=== PATIENT | male | born 1940 | race Caucasian/White ===

== ENCOUNTER 2017-04-05 12:58 | Emergency (ER) | payer OTHER ==
[2017-04-05 13:20] VITALS: BP 153/70; TEMP 95; BMI 25.7
--- NOTE | 2017-04-05 14:21 | DI ---
Exam: Single x-ray of the chest. Comparison: 08/05/2012. Reason for exam: Cough. FINDINGS: No pneumothorax. Developing opacity is seen in the left lung base. The cardiac silhouett e is not enlarged. The imaged osseous structures appear grossly unremarkable without acute fracture. Impression: Left lower lobe airspace opacity may be accentuated by summation shadowing. Imaging find ings can be seen with pneumonia, atelectasis, and neoplasia. Recommend follow-up two-view of the patricia st or CT examination for further characterization.
[2017-04-05] MEDS ORDERED: DEXTROSE 50%-WATER ABBOJECT ONE (14:26)
--- NOTE | 2017-04-05 14:38 | CT ---
EXAM: CT head without contrast. HISTORY: Initial presentation for head trauma due to a fall. COMPARISON: None available. TECHNIQUE: Multiple axial images of the brain were obtained from the skull base through the vertex w ithout intravenous contrast. Multiplanar reformats were provided. FINDINGS: There is no intracranial hemorrhage or extraaxial collection. The ramirez-white differentiat ion is maintained without evidence for acute large vascular territory infarction. There are areas of periventricular and subcortical white matter low attenuation. Focal area of encephalomalacia sugges jovanna in the anterior inferior right frontal lobe on axial image 9 and coronal image 11. The cortical sulci and cerebral ventricles are symmetrically enlarged. The basal cisterns are well visualized. T here is no hydrocephalus, mass effect, or midline shift. Moderate ethmoid sinus mucosal thickening n oted with more mild changes throughout remainder of the paranasal sinuses. The mastoid air cells are clear. The calvarium is intact. Old appearing anterior nasal bone and perpendicular plate fracture s noted. IMPRESSION: 1. No acute intracranial abnormality. 2. Chronic small vessel ischemic changes and atrophy.
--- NOTE | 2017-04-05 15:10 | ED.PDOC ---
General ED Provider: Dr. IVANA ASHRAF Chief Complaint: Fall Stated Complaint: FALL Time Seen by Physician: 13:00 (FOUND THE FLOOR BY GRANDSON AROUND 1 PM. PT STATED HE PASSED OUT ) Mode of Arrival: Ambulance Information Source: Patient, Family, EMT (EMT ARRIVED PT'S BLOOD SUGAR WAS 50 AT HIS RESIDENCE PT LIVES ALONE DENIED HEAD AND NECK PAIN) Exam Limitations: No limitations, Other ( PRESENT WAS BETTY DURING THE ENTIRE BONE SURVEY WHICH WAS NEGATIVE ) Primary Care Provider: AZEB COOK Referred to ED by: Other (FULL BONE SURVEY WAS NEGATIVE FOR ANY FOCAL PAIN ) Nursing and Triage Documentation Reviewed and Agree: Yes Reviewed sepsis parameters & appropriate labs ordered?: Yes System Inflammatory Response Syndrome: Not Applicable Sepsis Protocol: For patient's 13 years and over: Temp is 96.8 and below OR 101 and greater Pulse >90 BPM Resp >20/minute Acutely Altered Mental Status Are patient's symptoms suggestive of a new infection, such as: -Pneumonia -Skin, Soft Tissue -Endocarditis -UTI -Bone, Joint Infection -Implantable Device -Acute Abdominal Infection -Wound Infection -Meningitis -Blood Stream Catheter Infection -Unknown Trauma/Injury Complaint Exam - Trauma Complaint/Exam Location of Pain or Injury: Reports: Head, RLE (ABRASION SEE PHOTOS). Denies: Scalp, Face, Neck, RUE, LUE, Chest, Abdomen, Back Mechanism of Injury: Reports: Fall ( FROM STANDING POSTION FOUND ON THE FLOOR ) Onset/Duration: 12 HOURS AGO ABOUT 1 PM Symptoms Are: Resolved Initial Severity: Mild Current Severity: Mild Aggravating: Reports: None Alleviating: Reports: None Associated Signs and Symptoms: Denies: LOC, Confusion, Memory loss, Lethargy, Vomiting, Bleeding, Bruising (ABRASION FORHEAD SEE PHOTOS), Swelling, Extremity disuse, Painful respiration, Hoarseness, Dysphagia, Hemoptysis, Significant blood loss Related History: Reports: Similar episode Nexus Low Risk Criteria: No post-midline CS tender, No evidence of intoxicat., No Altered LOC, No focal neuro deficit, No distracting injuries Glascow Coma Scale (see protocol): 15 NO FOCAL PAIN Trauma Findings: Absent: Racoon eyes, Hemotympanum, Nasal deformity, Dental tenderness, Neck tenderness, Neck spasm, Crepitus, Airway obstructed, Trachea displaced, Labored respirations, Weak pulses, Absent pulses, Abdominal distention, Pelvic tenderness, Pelvic instability Skin Findings: Present: Abrasion Review of Systems - Review Of Systems Constitutional: Reports: No symptoms Eyes: Reports: No symptoms Ears, Nose, Mouth, Throat: Reports: No symptoms Respiratory: Reports: No symptoms Cardiac: Reports: No symptoms GI: Reports: No symptoms : Reports: No symptoms Musculoskeletal: Reports: No symptoms Skin: Reports: No symptoms Neurological: Reports: No symptoms Endocrine: Reports: No symptoms Hematologic/Lymphatic: Reports: No symptoms All Other Systems: Reviewed and Negative Past Medical History - Past Medical History Previously Healthy: No Endocrine: Reports: DM 2, Dyslipidemia Cardiovascular: Reports: Hypertension Respiratory: Reports: COPD, Pneumonia Hematological: Reports: None Gastrointestinal: Reports: None Genitourinary: Reports: CKD Neuro/Psych: Reports: None Musculoskeletal: Reports: None Cancer: Reports: None - Surgical History General Surgical History: Reports: None - Family History Family History: Reports: None - Social History Smoking Status: Current every day smoker 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) Alcohol Screening: Occasionally - Immunizations Tetanus Shot up to Date: No Physical Exam - Physical Exam Appearance: Ill-appearing Ill-appearing: Mild Pain Distress: Mild Eyes: CHAITANYA, EOMI, Conjunctiva clear ENT: Ears normal, Nose normal, Oropharynx normal Respiratory: Airway patent, Breath sounds clear, Breath sounds equal, Respirations nonlabored Cardiovascular: RRR, Pulses normal, No rub, No murmur GI/: Soft, Nontender, No masses, Bowel sounds normal, No Organomegaly Musculoskeletal: Normal strength, ROM intact, No edema, No calf tenderness Skin: Warm, Dry (ABRASION ON THE FORHEAD AND RIGHT FOREARM FLEXOR SIDE ), Normal color Neurological: Sensation intact, Motor intact, Reflexes intact, Cranial nerves intact, Alert, Oriented Psychiatric: Affect appropriate, Mood appropriate Interpretation - Radiology Interpretation Radiology Interpretation By: Radiologist Radiology Results: No acute changes Exam Interpreted: CT Scan - Bioinformaticist Rate: Kvng Rhythm: Sinus - EKG Interpretation Rate: Kvng Rhythm: Sinus Physician Notification - Case Discussed Physician Notified: pmd Time of Notification: 15:49 (saw pt in the ED ADJUSTED MEDS ASK PT TO FOLLOW UP WITH HIM) Critical Care Note - Critical Care Note Total Time (mins): 0 Course - Course Hematology/Chemistry: 04/05/17 13:58 04/05/17 13:58 Orders, Labs, Meds: Lab Review 04/05/17 04/05/17 04/05/17 13:50 13:58 13:58 WBC 13.00 H RBC 4.05 L Hgb 12.0 L Hct 34.4 L MCV 84.9 MCH 29.6 MCHC 34.9 RDW Coeff of Minerva 14.2 Plt Count 201 Immature Gran % (Auto) 0.7 Neut % (Auto) 79.2 Lymph % (Auto) 11.7 Thayer % (Auto) 5.4 Eos % (Auto) 2.6 Baso % (Auto) 0.4 Immature Gran # (Auto) 0.1 Neut # 10.3 H Lymph # 1.5 Thayer # 0.7 Eos # 0.3 Baso # 0.1 Sodium 138 Potassium 4.0 Chloride 104 Carbon Dioxide 27 Anion Gap 11.0 BUN 17 Creatinine 1.28 H Estimated GFR (MDRD) 55.00 BUN/Creatinine Ratio 13.28 Glucose 48 L* Calcium 9.3 Total Bilirubin < 0.3 AST 16 ALT 14 Alkaline Phosphatase 87 Total Creatine Kinase Troponin I Total Protein 7.1 Albumin 3.5 Globulin 3.6 Albumin/Globulin Ratio 0.97 Plasma/Serum Alcohol Influenza A (Rapid) Negative by naat Influenza B (Rapid) Negative by naat 04/05/17 04/05/17 13:58 13:58 WBC RBC Hgb Hct MCV MCH MCHC RDW Coeff of Minerva Plt Count Immature Gran % (Auto) Neut % (Auto) Lymph % (Auto) Thayer % (Auto) Eos % (Auto) Baso % (Auto) Immature Gran # (Auto) Neut # Lymph # Thayer # Eos # Baso # Sodium Potassium Chloride Carbon Dioxide Anion Gap BUN Creatinine Estimated GFR (MDRD) BUN/Creatinine Ratio Glucose Calcium Total Bilirubin AST ALT Alkaline Phosphatase Total Creatine Kinase 110 Troponin I 0.0120 Total Protein Albumin Globulin Albumin/Globulin Ratio Plasma/Serum Alcohol < 10.0 Influenza A (Rapid) Influenza B (Rapid) Orders Category Date Time Status EKG-(ED ONLY) Stat CARDIO 04/05/17 13:45 Completed BLOOD ALCOHOL Stat LAB 04/05/17 13:58 Completed CBC W/ AUTO DIFF Stat LAB 04/05/17 13:58 Completed COMPREHENSIVE METABOLIC PANEL Stat LAB 04/05/17 13:58 Completed CREATINE KINASE Stat LAB 04/05/17 13:58 Completed MOLECULAR FLU A/B Stat LAB 04/05/17 13:50 Completed TROPONIN I Stat LAB 04/05/17 13:58 Completed Dextrose 50 % in Water [Dextrose 50%-Water Abboject] MEDS 04/05/17 14:26 Discontinued 50 ml .ROUTE .STK-MED ONE CHEST, 1V AP ONLY Stat RADS 04/05/17 13:[address] HEAD W/O CONTRAST Stat RADS 04/05/17 13:46 Completed Vital Signs: Temp Pulse Resp BP Pulse Ox 04/05/17 13:03 95.0 F L 50 L 16 153/70 H 100 Departure - Departure Time of Disposition: 16:00 Disposition: HOME SELF-CARE Discharge Problem: Hypoglycemia Instructions: Hypoglycemia in a Person with Diabetes (ED) Condition: Good Pt referred to PMD for follow-up: Yes Additional Instructions: Please call your Family Physician as soon as possible to schedule a follow-up appointment. No Humalog insulin tonight. Take blood sugar breakfast, lunch and supper tomorrow and call results to office on Monday Reduce Lantus from 55 units to 40 units tomorrow. Allergies/Adverse Reactions: Allergies No Known Allergies Allergy (Unverified 04/05/17 13:09) Home Medications: Ambulatory Orders Carvedilol [Coreg] 3.125 mg PO BID 04/05/17 Diazepam [Valium] 5 mg PO BID 04/05/17 Insulin Glargine,Hum.rec.anlog [Lantus] 55 unit SUBCUT DAILY 04/05/17 Insulin Lispro [Humalog] 6 unit SUBCUT TIDWM 04/05/17 Lisinopril [Zestril] 20 mg PO DAILY 04/05/17 Metformin HCl [Glucophage] 1,000 mg PO BEDTIME 04/05/17
[2017-04-05] MEDS ORDERED: DEXTROSE 50%-WATER ABBOJECT IVP STA (16:01)
== END 2017-04-05 15:55 | disposition home or self-care (01) ==
LOC: ED 12:58
DX: E11.649 Type 2 diabetes mellitus with hypoglycemia without coma (principal); R55 Syncope and collapse; R40.4 Transient alteration of awareness; S00.81XA Abrasion of other part of head, initial encounter; S50.811A Abrasion of right forearm, initial encounter; R00.1 Bradycardia, unspecified; W19.XXXA Unspecified fall, initial encounter; F10.21 Alcohol dependence, in remission; I10 Essential (primary) hypertension; E78.5 Hyperlipidemia, unspecified; J44.9 Chronic obstructive pulmonary disease, unspecified; N18.9 Chronic kidney disease, unspecified; F17.210 Nicotine dependence, cigarettes, uncomplicated; Z79.4 Long term (current) use of insulin; Z79.899 Other long term (current) drug therapy
CPT/HCPCS: 36415; 80053; 80307; 82550; 84484; 85025; 87502; 93005; 93010; 96374; 99283

== ENCOUNTER 2017-06-11 20:48 | Inpatient (IN) | payer OTHER ==
[2017-06-11] MEDS ORDERED: DUONEB NEB STA (21:02)
[2017-06-11] MEDS ORDERED: XOPENEX 1.25 MG NEB STA (21:03)
--- NOTE | 2017-06-11 21:09 | ED.PDOC ---
General ED Provider: Dr. HONORIO GUADARRAMA-ER Chief Complaint: Shortness of Air Stated Complaint: i saw dr allison recently and put on antbx--now i am still coughing and sob Time Seen by Physician: 20:50 Mode of Arrival: Walk-In Information Source: Patient Exam Limitations: No limitations Primary Care Provider: AZEB ALLISON Nursing and Triage Documentation Reviewed and Agree: Yes Reviewed sepsis parameters & appropriate labs ordered?: Yes System Inflammatory Response Syndrome: Not Applicable Sepsis Protocol: For patient's 13 years and over: Temp is 96.8 and below OR 101 and greater Pulse >90 BPM Resp >20/minute Acutely Altered Mental Status Are patient's symptoms suggestive of a new infection, such as: -Pneumonia -Skin, Soft Tissue -Endocarditis -UTI -Bone, Joint Infection -Implantable Device -Acute Abdominal Infection -Wound Infection -Meningitis -Blood Stream Catheter Infection -Unknown Respiratory Complaint Exam - Respiratory Complaint/Exam Onset/Duration: 6 days Symptoms Are: Still present Timing: Intermittent Initial Severity: Mild Current Severity: Mild Location: Chest Character: Reports: Productive cough Aggravating: Reports: URI, Passive smoke exposure Alleviating: Reports: Bronchodilators Associated Signs and Symptoms: Reports: Dyspnea, Fever, Chills, Wheezing, URI. Denies: Rapid breathing, Chest pain, Pleuritic chest pain, Hemoptysis, Dizziness , Calf pain, Calf swelling, Edema, Nasal congestion, Hoarseness, Sinus discomfort, Vomiting, Sore throat, Weight loss, Decreased oral intake, Increased thirst, Increased appetite, Increased urination History of Healthcare-Acquired Pneumonia: No Pseudomonas Risk Factors: Reports: Chronic Lung Disease Home Oxygen Use: No Recent Stress Test: No Recent Echo/LV Function: No Current Antibiotic Use: Yes Current Asthma Medication Use: No Respiratory Distress: Mild Inadequate Respiratory Effort: No Dysphagia Present: No Stridor Present: No JVD Present: No Accessory Muscle Use: No Retractions: Not Present Diminished Breath Sounds: No Sinus Tenderness: None Grunting Respirations: No Kussmaul Respirations: No Differential Diagnoses: COPD Exacerbation, Pneumonia, Bronchitis Non-Traumatic Chest Pain Syncope: EKG Performed Review of Systems - Review Of Systems Constitutional: Reports: Weakness Eyes: Reports: No symptoms Ears, Nose, Mouth, Throat: Reports: No symptoms Respiratory: Reports: Cough, Short of air, Wheezing Cardiac: Reports: No symptoms GI: Reports: No symptoms : Reports: No symptoms Musculoskeletal: Reports: No symptoms Skin: Reports: No symptoms Neurological: Reports: No symptoms Endocrine: Reports: No symptoms Hematologic/Lymphatic: Reports: No symptoms All Other Systems: Reviewed and Negative Past Medical History - Past Medical History Previously Healthy: No Endocrine: Reports: DM 2, Dyslipidemia Cardiovascular: Reports: Hypertension Respiratory: Reports: COPD, Pneumonia Hematological: Reports: None Gastrointestinal: Reports: None Genitourinary: Reports: CKD Neuro/Psych: Reports: None Musculoskeletal: Reports: None Cancer: Reports: None - Surgical History General Surgical History: Reports: None - Family History Family History: Reports: None - Social History Smoking Status: Current every day smoker, Light tobacco smoker 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) Alcohol Screening: None Lives: With family - Immunizations Tetanus Shot up to Date: No Physical Exam - Physical Exam Appearance: Well-appearing, No pain distress, Well-nourished Eyes: CHAITANYA, EOMI, Conjunctiva clear ENT: Ears normal, Nose normal, Oropharynx normal Neck: Supple Respiratory: Airway patent, Breath sounds equal, Rhonchi, Wheezes Cardiovascular: RRR GI/: Soft, Nontender, No masses, Bowel sounds normal, No Organomegaly Musculoskeletal: Normal strength, ROM intact, No edema, No calf tenderness Skin: Warm Neurological: Sensation intact Psychiatric: Affect appropriate, Mood appropriate, Anxious Interpretation - Radiology Interpretation Radiology Interpretation By: Radiologist Radiology Results: Positive Exam Interpreted: CT Scan - EKG Interpretation Time of EKG #1: 21:57 Rate: Normal Rhythm: Sinus Ectopy: None Dolores: NL ST Segment: Normal Interpretation: nsr Physician Notification - Case Discussed Physician Notified: dr allison Time of Notification: 21:58 Critical Care Note - Critical Care Note Total Time (mins): 0 Course - Course Hematology/Chemistry: 06/11/17 21:10 06/11/17 21:10 Orders, Labs, Meds: Lab Review 06/11/17 06/11/17 06/11/17 21:00 21:01 21:10 WBC 7.38 RBC 3.75 L Hgb 11.3 L Hct 31.8 L MCV 84.8 MCH 30.1 MCHC 35.5 H RDW Coeff of Minerva 13.7 Plt Count 161 Neutrophils % (Manual) 72.0 Lymphocytes % (Manual) 16.0 Monocytes % (Manual) 10.0 Basophils % (Manual) 1.0 Reactive Lymphocytes 1.0 Anisocytosis Not present Puncture Site Lb O2 Saturation 91.0 L ABG pH 7.39 ABG pCO2 34.5 L ABG pO2 61.0 L ABG HCO3 20.9 L ABG Total CO2 22 ABG Base Excess -4 L Ramesh Test + FiO2 % 21.0 Sodium Potassium Chloride Carbon Dioxide Anion Gap BUN Creatinine Estimated GFR (MDRD) BUN/Creatinine Ratio Glucose Calcium Total Bilirubin AST ALT Alkaline Phosphatase Total Protein Albumin Globulin Albumin/Globulin Ratio Influ A Molecular Assay Negative by naat Influ B Molecular Assay Positive by naat H 06/11/17 21:10 WBC RBC Hgb Hct MCV MCH MCHC RDW Coeff of Minerva Plt Count Neutrophils % (Manual) Lymphocytes % (Manual) Monocytes % (Manual) Basophils % (Manual) Reactive Lymphocytes Anisocytosis Puncture Site O2 Saturation ABG pH ABG pCO2 ABG pO2 ABG HCO3 ABG Total CO2 ABG Base Excess Ramesh Test FiO2 % Sodium 131 L Potassium 4.9 Chloride 101 Carbon Dioxide 21 L Anion Gap 13.9 BUN 46 H Creatinine 1.42 H Estimated GFR (MDRD) 49.00 BUN/Creatinine Ratio 32.39 Glucose 253 H Calcium 8.9 Total Bilirubin 0.3 AST 19 ALT 17 Alkaline Phosphatase 74 Total Protein 7.2 Albumin 2.9 L Globulin 4.3 Albumin/Globulin Ratio 0.67 Influ A Molecular Assay Influ B Molecular Assay Orders Category Date Time Status ABG DRAW REQUEST Stat CARDIO 06/11/17 21:01 Completed EKG-(ED ONLY) Stat CARDIO 06/11/17 21:01 Completed NEBULIZER TREATMENT Stat CARDIO 06/11/17 21:03 Completed IV [ED IV/MEDIPORT/POWERPORT] .ONCE EMERGENCY 06/11/17 21:02 Active ABG Stat LAB 06/11/17 21:01 Completed BLOOD CULTURE (ED ONLY) Stat LAB 06/11/17 21:10 Received BNP [B-TYPE NATRIURETIC PEPTIDE] Stat LAB 06/11/17 21:10 Received CBC W/ AUTO DIFF Stat LAB 06/11/17 21:10 Completed COMPREHENSIVE METABOLIC PANEL Stat LAB 06/11/17 21:10 Completed FLU A/B MOLECULAR Stat LAB 06/11/17 21:00 Completed MANUAL DIFFERENTIAL Stat LAB 06/11/17 21:10 Completed 0.9 % Sodium Chloride [Saline Flush] MEDS 06/11/17 21:02 Ordered 1 syr IVF PRN PRN Ipratropium/Albuterol Neb [Duoneb] MEDS 06/11/17 21:02 Discontinued 1 vial NEB ONCE STA Levalbuterol HCl [Xopenex 1.25 mg] MEDS 06/11/17 21:03 Discontinued [address] vial NEB ONCE STA CT CHEST W/O CONTRAST Stat RADS 06/11/17 21:03 Completed Medications Generic Name Dose Route Start Last Admin Trade Name Freq PRN Reason Stop Dose Admin Sodium Chloride 1 syr 06/11/17 21:02 06/11/17 21:21 Saline Flush IVF 1 syr PRN PRN Administration To flush IV Discontinued Medications Generic Name Dose Route Start Last Admin Trade Name Freq PRN Reason Stop Dose Admin Albuterol/Ipratropium 1 vial 06/11/17 21:02 06/11/17 21:30 Duoneb NEB 06/11/17 21:03 1 vial ONCE STA Administration Levalbuterol HCl 1 vial 06/11/17 21:03 06/11/17 21:45 Xopenex 1.25 Mg NEB 06/11/17 21:04 1 vial ONCE STA Administration Vital Signs: Temp Pulse Resp BP Pulse Ox 06/11/17 20:49 98.1 F 80 24 151/71 H 90 L Departure - Departure Time of Disposition: 21:58 Disposition: ADMITTED INPATIENT Discharge Problem: Influenza Acute respiratory failure Qualifiers: Respiratory failure complication: hypoxia Qualified Code(s): J96.01 - Acute respiratory failure with hypoxia Pneumonia Qualifiers: Pneumonia type: due to unspecified organism Laterality: unspecified laterality Lung location: unspecified part of lung Qualified Code(s): J18.9 - Pneumonia, unspecified organism Instructions: Influenza (ED) Condition: Stable Pt referred to PMD for follow-up: Yes IPMP verified?: No Allergies/Adverse Reactions: Allergies No Known Allergies Allergy (Verified 06/11/17 21:02) Home Medications: Ambulatory Orders Carvedilol [Coreg] 25 mg PO BID 04/05/17 Diazepam [Valium] 5 mg PO BID 04/05/17 Insulin Glargine,Hum.rec.anlog [Lantus] 40 - 55 unit SUBCUT DIRECTED Lisinopril [Zestril] 20 mg PO DAILY 04/05/17 Metformin HCl [Glucophage] 1,000 mg PO BEDTIME 04/05/17 Amlodipine Besylate [Norvasc] 10 mg PO DAILY 06/11/17 Disposition Discussed With: Patient, Family
--- NOTE | 2017-06-11 21:54 | CT ---
EXAM: CT of the chest without contrast. HISTORY: Cough. Shortness of breath. PROCEDURE: Contiguous axial CT images of the chest without contrast with coronal and sagittal reform ats. FINDINGS: The heart is within normal limits in size. The thoracic aorta is within normal limits in s ize. There are bibasilar infiltrates and patchy areas of consolidation in the left lower lobe. There are degenerative changes in the spine. The adrenal glands and visualized portion of the liver are nor mal in appearance. Impression: Bilateral infiltrates and left lower lobe consolidation as described consistent with pne umonia.
[2017-06-11] MEDS ORDERED: ROCEPHIN 1 GM in SODIUM CHLORIDE 50 ML IV SCH (22:00)
[2017-06-11] MEDS ORDERED: TYLENOL PO PRN (22:00)
[2017-06-11] MEDS ORDERED: ZITHROMAX PO STA (22:02)
[2017-06-11] MEDS ORDERED: VANCOMYCIN 1,000 MG in SODIUM CHLORIDE 200 ML IV STA (22:03)
[2017-06-11] MEDS ORDERED: ALBUTEROL 0.042% NEB NEB PRN (22:03)
[2017-06-11] MEDS ORDERED: HUMULIN R SUBCUT PRN (22:04)
[2017-06-11] MEDS ORDERED: VANCOMYCIN ONE (22:09)
[2017-06-11] MEDS: SODIUM CHLORIDE 1,000 ML IV SCH (22:21)
[2017-06-11] MEDS ORDERED: TAMIFLU PO SCH (22:30)
[2017-06-11] MEDS: DUONEB NEB SCH (23:05)
[2017-06-11 23:11] VITALS: BMI 23.5
[2017-06-12] MEDS ORDERED: ROCEPHIN ONE (00:28)
[2017-06-12] MEDS: DUONEB NEB SCH ×3 (04:42→17:15)
[2017-06-12] MEDS: ZITHROMAX PO SCH (08:46)
[2017-06-12] MEDS: ZESTRIL PO SCH (08:46)
[2017-06-12] MEDS: NORVASC PO SCH (08:47)
[2017-06-12] MEDS: COREG PO SCH ×2 (08:47→17:28)
[2017-06-12] MEDS: VALIUM PO SCH ×2 (08:47→20:35)
[2017-06-12] MEDS: TAMIFLU PO SCH ×2 (08:47→20:35)
[2017-06-12] MEDS: LANTUS SUBCUT SCH (08:47)
[2017-06-12] MEDS ORDERED: NON-FORMULARY MEDICATION (Lisinopril [Zestril] 20 MG) PO SCH (09:00)
[2017-06-12] MEDS ORDERED: COREG PO SCH (09:00)
[2017-06-12] MEDS ORDERED: NON-FORMULARY MEDICATION (Amlodipine Besylate [Norvasc] 10 MG) PO SCH (09:00)
[2017-06-12] MEDS: LOVENOX SUBCUT SCH (09:11)
[2017-06-12] MEDS ORDERED: GLUCOPHAGE PO SCH (17:00)
[2017-06-12] MEDS: ATIVAN PO PRN ×2 (17:27→22:49)
[2017-06-12] MEDS: NICODERM 14 MG TD SCH (17:27)
[2017-06-12] MEDS ORDERED: ROCEPHIN 1 GM in SODIUM CHLORIDE 50 ML IV SCH (21:00)
[2017-06-12] MEDS ORDERED: NON-FORMULARY MEDICATION (Metformin Hcl [Glucophage] 1,000 MG) PO SCH (21:00)
[2017-06-13] MEDS: DUONEB NEB SCH ×3 (00:35→11:19)
[2017-06-13] MEDS: ATIVAN PO PRN ×3 (04:37→12:39)
[2017-06-13] MEDS: SODIUM CHLORIDE 1,000 ML IV SCH (04:37)
[2017-06-13] MEDS: LANTUS SUBCUT SCH (09:12)
[2017-06-13] MEDS: ZESTRIL PO SCH (09:25)
[2017-06-13] MEDS: NORVASC PO SCH (09:25)
[2017-06-13] MEDS: TAMIFLU PO SCH (09:25)
[2017-06-13] MEDS: SOLU-MEDROL 125 MG IVP SCH ×2 (09:26→15:11)
[2017-06-13] MEDS: NICODERM 14 MG TD SCH (09:26)
[2017-06-13] MEDS: ZITHROMAX PO SCH (09:26)
[2017-06-13] MEDS: LOVENOX SUBCUT SCH (09:28)
[2017-06-13] MEDS: COREG PO SCH (09:30)
[2017-06-13] MEDS: VALIUM PO SCH (09:30)
--- NOTE | 2017-06-13 12:29 | DI ---
Exam: Chest two-view History: Respiratory failure FINDINGS: Normal cardiomediastinal contours. Normal pulmonary vasculature. No infiltrative opaciti es. No chest wall abnormality. Impression: Negative exam.
[2017-06-13 15:09] VITALS: BP 153/73; TEMP 97.8
== END 2017-06-13 17:38 | disposition home or self-care (01) | DRG 193 ==
LOC: ED 20:48 → MEDSURG B 22:05
PROVIDERS: ADMIT Family Medicine; ATTEND Family Medicine
DX: J18.9 Pneumonia, unspecified organism (principal); J96.01 Acute respiratory failure with hypoxia; J10.1 Influenza due to other identified influenza virus with other respiratory manifestations; J44.1 Chronic obstructive pulmonary disease with (acute) exacerbation; I10 Essential (primary) hypertension; E11.9 Type 2 diabetes mellitus without complications; D64.9 Anemia, unspecified; R06.02 Shortness of breath; F17.210 Nicotine dependence, cigarettes, uncomplicated; Z79.899 Other long term (current) drug therapy
CPT/HCPCS: 36415; 80053; 82803; 82962; 83880; 85007; 85025; 87040; 87502; 93005; 93010; 94640; 94761; 96365; 99284

== ENCOUNTER 2017-07-11 12:51 | Outpatient (CLI) | END 2017-07-11 12:52 | disposition home or self-care (01) | LOC: CAR 12:51 | PROVIDERS: ATTEND Family Medicine | DX: J44.1 Chronic obstructive pulmonary disease with (acute) exacerbation (principal); J18.9 Pneumonia, unspecified organism; J96.90 Respiratory failure, unspecified, unspecified whether with hypoxia or hypercapnia | CPT/HCPCS: 94761 ==

== ENCOUNTER 2017-08-02 15:44 | Outpatient (CLI) ==
--- NOTE | 2017-08-02 16:54 | DI ---
Exam: Two x-rays of the chest. Comparison: 06/13/2017. Reason for exam: Chronic obstructive pulmonary disease and pneumonia. FINDINGS: No pneumothorax, pleural effusion, or focal consolidation. The cardiac silhouette is not enlarged. The imaged osseous structures appear grossly unremarkable without acute fracture. Impression: No acute cardiopulmonary process.
== END 2017-08-02 15:45 | disposition home or self-care (01) ==
LOC: RAD 15:44
PROVIDERS: ATTEND Family Medicine
DX: J44.0 Chronic obstructive pulmonary disease with (acute) lower respiratory infection (principal); J18.9 Pneumonia, unspecified organism; J44.1 Chronic obstructive pulmonary disease with (acute) exacerbation; J96.90 Respiratory failure, unspecified, unspecified whether with hypoxia or hypercapnia

== ENCOUNTER 2017-08-04 13:22 | Outpatient (RCR) ==
--- NOTE | 2017-08-04 16:22 | RS.OPPTEV2 ---
Date of Note: 08/04/17 Visit #: 1 Date of Evaluation: 08/04/17 Payer Source: MEDICARE Surgery Performed?: No Treatment Diagnosis: gait disturbance, LE weakness History of Condition/Mechanism of Injury:: pt states he stepped in hole in the sidewalk feeling a pull in his R calf muscle approx 3 months ago. Prior Level of Function.....Patient was independent with: ADL's, Self Care, Ambulation/Mobility, Community Integration/Access Functional Limitations: Squatting, Ambulation, Community Access/Integration Current Subjective/complaints:: pt states that since he stepped in the hole approx 3 months ago if he walks > 1 block his R calf begins hurting and feels weak, like it won't hold him up. Treatment Side (optional): Right *Precautions: n/a Medical History Medical History: Hypertension, COPD, Diabetes Smoking Status: Former smoker Hx Home Medications: lantus, valium, norvasc, coreg, zestril Patient's Goals: be able to walk farther. Pain Assessment - Pain Description Pain Location: R calf Pain Description: Tightness, Dull Other Comments regarding Pain:: pt states after walking or ex that his R calf feels weak. Functional Outcome Measure Tinetti: 20 - G Codes & Severity Modifier G Codes & Modifier: mobility current CJ. mobility goal CI Source of G Code score: tinetti score Observation - Observation Posture: Forward Head, Rounded Shoulders, Increased Thoracic Kyphosis, Decreased Lumbar Lordosis Handedness: Right Comments: pt with min tightness B heel cord as well as mod hamstring tightness. Gait - Gait Pattern Gait Comments: pt with decreased step height on RLE General Range of Motion: WFL's Muscle Strength: BUE 4+/5. BLE hip flex 4+/5, knee flex/ext 5/5, ankle DF/PF 5/ 5. Inversion/eversion BLE 4+/5 Palpation Palpation Findings: None/Normal Sensation - Sensation Right Upper Extremity: Intact/Normal Left Upper Extremity: Intact/Normal Right Lower Extremity: Intact/Normal Left Lower Extremity: Intact/Normal Balance - Sitting Balance Static Sitting Balance: Normal Dynamic Sitting Balance: Normal - Standing Balance Static Standing Balance: Good Dynamic Standing Balance: Fair - Comments Balance Assessment Comments: tinetti score 20/28 Interventions - Exercise/Activities/Manual Therapy Exercises/Activities: pt performed PF, hip abd, hip flex with red theraband, isometric hip add x 5-10 reps each ex. Towel stretch for heel cord stretch Manual Therapy: n/a HOME EXERCISE PROGRAM: pt given written HEP including: PF, hip flex, hip abd, as well as isometric hip add and towel stretch for calf. - Charges Timed Code Treatment Minutes: 42 Total Treatment Time: 50 Procedures billed for this date of service:: eval low EVALUATION COMPLEXITY LEVEL EVALUATION COMPLEXITY LEVEL: HISTORY: Medium (DM. HTN, COPD), EXAM OF BODY SYSTEMS: Low (balance, strength, pain), CLINICAL PRESENTATION: Low, CLINICAL DECISION MAKING: Low Assessment Assessment: pt presents with decreased strength, balance scoring at mod risk for falls according to tinetti. Feel pt would benefit from PT for LE strengthening, gentle stretching, as well as balance activities. Patient Education: Home Exercise Program, Education of Plan of Care Rehab Potential: Good Short Term Goals Goal #1: pt amb in dept with no LOB and no shuffling gait. Goal to be met by: 08/18/17 Goal #2: pt with no reports of pain in R calf with amb Goal to be met by: 08/18/17 Goal #3: pt independent with initial HEP Goal to be met by: 08/18/17 Goal #4: Improve dyn stand balance as noted by tinetti score 22/28 Goal to be met by: 08/18/17 Basketball Player Goals Goal #1: pt with no falls reported since eval Goal to be met by: 08/25/17 Goal #2: Improve dyn stand balance as noted by tinetti score 24/28 Goal to be met by: 08/25/17 Goal #3: pt able to amb community distances with no pain R calf Goal to be met by: 08/25/17 Plan - Treatment to be Provided Procedures: Therapeutic Exercises, Therapeutic Activity, Gait Training, Neuromuscular Rehab, Patient Education Modalities: Cryotherapy, Hot Packs - Treatment Plan Frequency: 2 X week Duration: 3 weeks ORDER # VISITS AND/OR THROUGH DATE: 08/25/17 - Treatment Code (1) Gait difficulty Code(s): R26.9 - UNSPECIFIED ABNORMALITIES OF GAIT AND MOBILITY (2) Balance problem Code(s): R26.89 - OTHER ABNORMALITIES OF GAIT AND MOBILITY (3) Acute pain of right lower extremity Code(s): M79.604 - PAIN IN RIGHT LEG
--- NOTE | 2017-08-09 15:00 | RS.CXNS ---
Date of scheduled appointment: 08/09/17 Type: No Show
--- NOTE | 2017-10-10 15:14 | RS.QUICKDC ---
Discharge from PT Date of Discharge: 10/10/17 Number of Visits: 1 Reason for Discharge: Patient attended eval only and no showed one scheduled appt. No contact to resume therapy at this point. See eval for specific measurements/information. Gcodes: Mobility D/c--CJ, goal--CI
== END 2017-08-31 23:59 ==
PROVIDERS: ATTEND Family Medicine
DX: R26.9 Unspecified abnormalities of gait and mobility (principal); R26.89 Other abnormalities of gait and mobility; M79.604 Pain in right leg

== ENCOUNTER 2018-04-17 14:26 | Outpatient (CLI) ==
--- NOTE | 2018-04-17 15:11 | DI ---
EXAM: Single view of the pelvis. History: Pelvic pain. Findings: No acute fracture or dislocation. Mild to moderate narrowing of bilateral hip joints with marginal sclerosis and small osteophytes. 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 No radiopaque foreign bodies. Impression: 1. No acute osseous abnormality. 2. 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
== END 2018-04-17 14:27 | disposition home or self-care (01) ==
LOC: RAD 14:26
PROVIDERS: ATTEND Family Medicine
DX: M54.5 Low back pain (principal)